=== PATIENT | female | born 1955 | race Caucasian/White ===

== ENCOUNTER 2016-11-12 19:15 | Emergency (ER) | payer BC ==
[~2016-11-12] VITALS: Ht 152.4 cm; Wt 77.9 kg
[2016-11-12 19:23] VITALS: BP 131/77; PULSE 90; RESP 16; TEMP 98.2; O2SAT 95
[2016-11-12] MEDS ORDERED: LEVO75TA3 PO (19:33)
[2016-11-12] MEDS ORDERED: LIVA4TAB PO (19:33)
[2016-11-12] MEDS ORDERED: COQ-50CA2 PO (19:34)
--- NOTE | 2016-11-12 19:52 | PD ---
HPI Chief Complaint: Complaint Time Seen by Provider: 19:30 Travel History International Travel<30 days: No Contact w/Intl Traveler<30days: No Traveled to known affect area: No History of Present Illness HPI The patient is a 61-year-old female who presents emergency department for frequency, urgency, and dysuria that started several hours prior to arrival. She also complains of mild pressure over the suprapubic area and low back pain. She also states that when she wipes there is a small amount of blood on the tissue paper. The patient's last menstrual cycle was approximately 10 years ago. She denies any nausea, vomiting, fever, chills, or sweats. She does have a history of remote UTIs with similar symptoms. Symptoms are mild to moderate, possibly exacerbated by underlying infection, and there are no current alleviating factors. PFSH Past Medical History High Cholesterol: Yes Diminished Hearing: No Genitourinary: Yes (FREQUENT UTI'S IN THE PAST, URETHRAL DILITATION) Immunizations Current: Yes Thyroid Disease: Yes Influenza Vaccination: No ?: Not Menopausal: Yes : 1 : 1 Social History Alcohol Use: Yes ([facility]) Tobacco Use: No (QUIT 2005) Substance Use: No Allergies-Medications (Allergen,Severity, Reaction): Coded Allergies: No Known Allergies (Unverified , 11/12/16) Reported Meds & Prescriptions Reported Meds & Active Scripts Active Reported Coq-10 (Coenzyme Q10 (Ubidecarenone)) 50 Mg Cap 1 Tab PO DAILY Levothyroxine (Levothyroxine Sodium) 75 Mcg Tab 75 Mcg PO DAILY Livalo (Pitavastatin) 4 Mg Tab 4 Mg PO DAILY Review of Systems Except as stated in HPI: all other systems reviewed are Neg General / Constitutional: No: Fever, Chills Gastrointestinal: No: Nausea, Vomiting Genitourinary: Positive: Urgency, Frequency, Dysuria, Hematuria, Pelvic Pain Skin: No Rash, No Itching Physical Exam Narrative GENERAL: Awake, alert, pleasant 61-year-old female who appears her stated age and is in no acute respiratory distress. SKIN: Focused skin assessment warm/dry. HEAD: Atraumatic. Normocephalic. EYES: No injection or drainage. ENT: No nasal bleeding or discharge. Mucous membranes pink and moist. NECK: Trachea midline. No JVD. GASTROINTESTINAL: Abdomen soft, mild suprapubic tenderness. Back: No CVA tenderness. MUSCULOSKELETAL: No obvious deformities. No clubbing. No cyanosis. No edema. NEUROLOGICAL: Awake and alert. No obvious cranial nerve deficits. Motor grossly within normal limits. Normal speech. PSYCHIATRIC: Appropriate mood and affect; insight and judgment normal. Data Data Last Documented VS Vital Signs Date Time Temp Pulse Resp B/P Pulse Ox O2 Delivery O2 Flow Rate FiO2 11/12/16 19:43 88 12 11/12/16 19:23 98.2 131/77 95 Orders Urinalysis - C+S If Indicated (11/12/16 19:48) Urine Culture (11/12/16 19:40) Labs Laboratory Tests Test 11/12/16 19:40 Urine Color YELLOW Urine Turbidity MOD Urine pH 5.5 Urine Specific [place] 1.022 Urine Protein 30 mg/dL Urine Glucose (UA) NEG mg/dL Urine Ketones NEG mg/dL Urine Occult Blood LARGE Urine Nitrite NEG Urine Bilirubin NEG Urine Leukocyte Esterase MOD Urine RBC INNUM /hpf Urine WBC INNUM /hpf Urine WBC Clumps FEW Urine Squamous Epithelial 0-5 /hpf Cells Urine Bacteria OCC /hpf Microscopic Urinalysis Comment CULTURE INDICATED MDM Medical Decision Making Medical Screen Exam Complete: Yes Emergency Medical Condition: Yes Medical Record Reviewed: Yes Interpretation(s) Laboratory Tests Test 11/12/16 19:40 Urine Color YELLOW Urine Turbidity MOD Urine pH 5.5 Urine Specific [place] 1.022 Urine Protein 30 mg/dL Urine Glucose (UA) NEG mg/dL Urine Ketones NEG mg/dL Urine Occult Blood LARGE Urine Nitrite NEG Urine Bilirubin NEG Urine Leukocyte Esterase MOD Urine RBC INNUM /hpf Urine WBC INNUM /hpf Urine WBC Clumps FEW Urine Squamous Epithelial 0-5 /hpf Cells Urine Bacteria OCC /hpf Microscopic Urinalysis Comment CULTURE INDICATED Differential Diagnosis Differential diagnosis includes UTI, pyelonephritis, cystitis, hemorrhagic cystitis, cervicitis, PID, diverticulitis. Narrative Course UA was sent to lab. UA is positive with innumerable RBCs and WBCs, consistent with hemorrhagic cystitis. The patient will be placed on Bactrim and Pyridium. The patient is advised to follow-up with her primary physician and return if symptoms worsen or progress. Diagnosis Primary Impression: Hemorrhagic cystitis Patient Instructions: General Instructions Additional Instructions: Medications as directed. Follow-up with your primary physician. Plenty fluids to stay hydrated. Return if symptoms worsen or progress. Med/Other Pt SpecificInfo: Prescription(s) given Scripts Phenazopyridine (Pyridium)100 Mg Ctb148 Mg PO Q8H PRN (DYSURIA) 2 Days Ref 0 Prov:Dejan Ennis MD 11/12/16 Sulfamethoxazole-Trimethoprim (Bactrim DS)800-160 Mg Tab1 Tab PO BID #14 TAB Ref 0 Prov:Dejan Ennis MD 11/12/16 Disposition: 01 DISCHARGE HOME Condition: Stable Dejan Ennis MD November 12, 2016 19:52
[2016-11-12 20:04] LABS: BLOOD, URINE LARGE (NEG); GLUCOSE,URINE NEG (NEG); KETONE, URINE NEG (NEG); NITRITE,URINE NEG (NEG); PH, URINE 5.5 (5.0-8.5)
[2016-11-12 20:19] LABS: URINE COLOR YELLOW (YELLW/STRAW)
[2016-11-12 20:20] LABS: BACTERIA, URINE OCC /hpf; COMMENT (UR) CULTURE INDICATED; CULTURE IF INDICATED CULTURE INDICATED; RBC, URINE INNUM /hpf (0-3); SQUAMOUS EPITHELIAL CELL URINE 0-5 /hpf (0-5); WBC, URINE INNUM /hpf (0-5)
[2016-11-12] MEDS ORDERED: PHEN0.4T PO (20:25)
[2016-11-12] MEDS ORDERED: BACT800T5 PO (20:25)
[2016-11-12 20:32] VITALS: BP 127/75
== END 2016-11-12 20:37 | disposition home or self-care (01) ==
LOC: PHED 19:15
DX: N30.81 Other cystitis with hematuria (principal); E78.00 Pure hypercholesterolemia, unspecified; E07.9 Disorder of thyroid, unspecified; Z87.891 Personal history of nicotine dependence; Z79.899 Other long term (current) drug therapy
CPT/HCPCS: 81001; 87077; 87086; 87186; 99284